=== PATIENT | male | born 1960 | race Caucasian/White ===

== ENCOUNTER 2020-12-18 20:45 | Emergency (ER) | payer SELFPAY ==
[2020-12-18 21:02] VITALS: BP 177/118; PULSE 81; RESP 24; TEMP 36.8; O2SAT 98; BMI 22.2
--- NOTE | 2020-12-18 23:03 | ED_ITS ---
HPI - Abdominal Pain General: Chief Complaint: Abdominal Pain Stated Complaint: GROIN PAIN/THINKS HERNIA Time Seen by Provider: 12/18/20 22:55 Source: patient Mode of arrival: ambulatory Limitations: no limitations History of Present Illness: HPI narrative: 60-year-old male patient presents to the emergency department with complaints of right lower quadrant/pelvic pain x3 hours. He has experienced similar bouts of pain but has not been this severe. He denies nausea vomiting diarrhea, he reports difficulty with urination, difficulty starting stream. He denies hematuria, denies constipation. History of bilateral lower abdominal hernia surgery, denies testicular pain. MD elicited complaint: abdominal pain Pertinent past history: other (hernia surgery) Pain Consistency: constant Location: RLQ and Suprapubic Severity: moderate Pain scale (0-10): 8 Quality: stabbing and aching Radiation: none Migration to: no migration Exacerbating factors: movement Relieving factors: nothing Context: history of similar episodes Associated Symptoms: Denies change in stool character, chills, constipation, diarrhea, dysuria, fever(s), heartburn, hematochezia, hematemesis, nausea and vomiting Review of Systems General: Reports: 10 or more systems reviewed and unremarkable except in HPI and below Const: Denies: fever(s), chills or diaphoresis Eyes: Denies: blurry vision or eye redness ENMT: Denies: throat pain, uvular edema, dental pain, halitosis or disequilibrium Card: Denies: chest pain, palpitations or irregular heart rhythm Resp: Denies: dyspnea, productive cough, non-productive cough or wheezing GI: Reports: abdominal pain; Denies: nausea, vomiting, hematemesis, heartburn, diarrhea, constipation, change in stool character or hematochezia : Reports: difficulty urinating, urinary hesitancy, difficulty starting urination and change in urine stream; Denies: dysuria Musc: Denies: neck pain, back pain, joint pain, muscle cramps or muscle weakness Skin/Breast: Denies: rash or pruritus Neuro: Denies: headache(s), weakness in extremities or behavioral changes Psych: Denies: anxiety or depression Victor Hugo/Lymph: Denies: easy bruising PFS ED PFSH: Medical History Ankle fracture, left Surgical History History of hernia surgery Social History (Updated 12/18/20 @ 23:38 by ABELARDO Sena) Smoking and tobacco status: current every day smoker cigarettes Packs smoked per day: 1 Alcohol intake: never Substance/Drug Use: never Physical Exam Const: COMMON NORMALS: no acute distress, patient oriented x3, healthy appearing, alert and well nourished GENERAL APPEARANCE: cooperative, well kempt, well developed, in distress (pain), anxious and well hydrated NUTRITIONAL APPEARANCE: thin ORIENTATION/CONSCIOUSNESS: Yes awake, Yes oriented to person, Yes oriented to place and Yes oriented to time HENMT: COMMON NORMALS: normocephalic, atraumatic, EAC's normal, Normal external nose present and moist oral mucous membranes HEAD & SCALP: normal to inspection, normocephalic and atraumatic FACE & SINUS: normal facial exam and face symmetric NOSE: Normal external nose present EXTERNAL AUDITORY CANAL: EAC's normal THROAT: posterior oropharynx normal; no uvular edema Eye: COMMON NORMALS: Equal, round and reactive pupils present and EOMs intact bilaterally GENERAL EYE: appearance normal, both eyes and all related structures PUPIL: Yes Equal, round and reactive pupils present Neck/C-Spine: COMMON NORMALS: full ROM and no lymphadenopathy GENERAL: Yes normal visual inspection and Yes trachea midline CERVICAL SPINE: Yes cervical ROM normal Lymph: LYMPHATIC: no lymphadenopathy noted Chest: COMMONS NORMALS: normal inspection of the chest and normal palpation of entire chest wall Resp: COMMON NORMALS: normal respiratory effort, No retractions, No use of accessory muscles and clear to auscultation bilaterally EFFORT & INSPECTION: Yes able to speak in complete sentences AUSCULTATION: clear to auscultation bilaterally, rhonchi and wheezes (scattered, clears with cough) Cardio: COMMON NORMALS: regular rate, regular rhythm, S1 normal heart sound present, S2 normal heart sound present and Peripheral pulses 2+ throughout RATE: regular rate RHYTHM: regular rhythm HEART SOUNDS: S1 normal heart sound present and S2 normal heart sound present PERIPHERAL PULSES: Peripheral pulses 2+ throughout GI: COMMON NORMALS: Normal to inspection, nondistended, normoactive bowel sounds present and Soft to palpation INSPECTION: Yes normal to inspection, No abdominal wall ecchymosis, No abdominal distension, No central obesity and No visible herniation PALPATION: Yes Soft to palpation, Yes Tenderness to palpation present (GI) Details: RLQ, Yes Rigid due to palpation and Yes Rebound tenderness present : COMMON NORMALS: Yes no CVA tenderness BLADDER/KIDNEY EXAM: Yes no CVA tenderness Back/Pelvis: COMMON NORMALS: no CVA tenderness and thoracic and lumbar spine normal to inspection Extremity: COMMON NORMALS: normal to inspection, full ROM, capillary refill normal, no calf tenderness and no pedal edema GENERAL: Yes normal exam except as noted Neuro: COMMON NORMALS: patient oriented x3 and no focal motor deficits SENSORIUM/ORIENTATION: Yes alert, Yes oriented to person, Yes oriented to place and Yes oriented to time Psych: COMMON NORMALS: mental status grossly normal, Normal thought process present and cooperative APPEARANCE: Yes well kempt ACTIVITY/MOTOR BEHAVIOR: Yes appropriate eye contact THOUGHT PROCESS: Normal thought process present Skin: COMMON NORMALS: no rashes or lesions noted, no wounds, turgor normal, no petechiae and no mottling GENERAL SKIN EXAM: no rashes or lesions noted, elasticity normal and turgor normal Course Vital Signs: Vital signs: Vital Signs Temperature 98.2 F 12/19/20 03:00 Pulse Rate 78 12/19/20 03:00 Respiratory Rate 17 12/19/20 03:00 Blood Pressure 160/109 12/19/20 03:00 Pulse Oximetry 97 12/19/20 03:00 MDM - Abdominal Pain MDM Narrative: Medical decision making narrative: 60-year-old male patient presents to the emergency department with worsening episode of right lower quadrant/suprapubic pain. Serology testing without acute abnormality, urine with red blood cells/white blood cells, CT scan of the abdomen/pelvis revealed multiple punctate calcifications throughout the urinary bladder reflecting small bladder calculi. He received morphine and Zofran here in the ED, medication did relieve his pain. He remained hypertensive despite pain medication administration -patient reports he is always been hypertensive, normal blood pressure reading, 220/110 . Hydralazine initiated as maintenance medication with referral to social group worker for urology due to bladder calculi and primary care for new onset hypertension. He denies chest pain/shortness of breath. Post residual void when 118 mL. Flomax initiated. He was treated with Cipro a nd Flagyl as left lower quadrant colitis appreciated on CT abdomen and pelvis. Lab Data: Labs: Lab Results 12/18/20 12/18/20 12/18/20 Range/Units 01:14 23:20 23:20 WBC 10.8 H (4.0-10.0) 10^3/ uL RBC 5.03 (4.1-5.3) 10^6/u L Hgb 14.6 (11.7-16.6) g/dL Hct 46.6 (42.0-52.0) % MCV 92.6 (80-94) fL MCH 29.0 (28.0-34.0) pg MCHC 31.3 (30.0-36.0) g/dL RDW 12.9 (12.1-15.1) % Plt Count 318 (130-400) 10^3/c mm MPV 9.8 (7.4-10.4) fL Neut % (Auto) 68.4 % Lymph % (Auto) 20.8 % [place] % (Auto) 6.7 % Eos % (Auto) 3.3 % Baso % (Auto) 0.6 % Neut # (Auto) 7.36 (1.8-7.7) 10^3/u L Lymph # (Auto) 2.2 (0.8-4.8) 10^3/u L [place] # (Auto) 0.7 (0.2-0.9) 10^3/u L Eos # (Auto) 0.4 (0.0-0.8) 10^3/u L Baso # (Auto) 0.1 (0.0-0.1) 10^3/u L Nucleated RBC % (a uto) 0 % Nucleated RBCs # 0.0 /100WBC Sodium 134 L Cancelled (136-145) mmol/L Potassium 4.0 Cancelled (3.5-5.1) mmol/L Chloride 98 Cancelled (98-107) mmol/L Carbon Dioxide 28 Cancelled (22-29) mmol/L Anion Gap 12.0 Cancelled (5-19) BUN 10 Cancelled (6-20) mg/dL Creatinine 0.5 L Cancelled (0.7-1.2) mg/dL GFR Calculation 170.8 H Cancelled (90-130) mL/min Glucose 97 Cancelled (65-115) mg/dL Calculated Osmolal ity 277 L Cancelled (285-295) mOsm/k g Calcium 8.2 L Cancelled (8.5-10.5) mg/dL Total Bilirubin 0.3 Cancelled (0.15-1.2) mg/dL AST 14 Cancelled (0-40) U/L ALT 11 Cancelled (0-41) U/L Alkaline Phosphata se 74 Cancelled (40-130) IU/L Total Protein 6.8 Cancelled (6.6-8.7) g/dL Albumin 3.5 Cancelled (3.5-5.2) g/dL Globulin 3.3 Cancelled (1.3-4.6) g/dL Urine Color (Yellow) Urine Appearance (CLEAR) Urine pH (5-7) Ur Specific Gravit y (1.005-1.030) Urine Protein (Negative) Urine Glucose (UA) (Normal) Urine Ketones (Negative) Urine Blood (Negative) Urine Nitrate (Negative) Urine Bilirubin (Negative) Prot Sulfosalicyli c Acd (Negative) Urine Urobilinogen (Negative) mg/dL Ur Leukocyte Heaven ase (Negative) Urine RBC (0-2) /hpf Urine WBC (0-5) /hpf Ur Squamous Epith Cells (0-5) /hpf Amorphous Sediment /hpf Urine Bacteria (NONE) /hpf Urine Mucus /hpf 12/19/ Range/Units 00:22 WBC (4.0-10.0) 10^3/ uL RBC (4.1-5.3) 10^6/u L Hgb (11.7-16.6) g/dL Hct (42.0-52.0) % MCV (80-94) fL MCH (28.0-34.0) pg MCHC (30.0-36.0) g/dL RDW (12.1-15.1) % Plt Count (130-400) 10^3/c mm MPV (7.4-10.4) fL Neut % (Auto) % Lymph % (Auto) % [place] % (Auto) % Eos % (Auto) % Baso % (Auto) % Neut # (Auto) (1.8-7.7) 10^3/u L Lymph # (Auto) (0.8-4.8) 10^3/u L [place] # (Auto) (0.2-0.9) 10^3/u L Eos # (Auto) (0.0-0.8) 10^3/u L Baso # (Auto) (0.0-0.1) 10^3/u L Nucleated RBC % (a uto) % Nucleated RBCs # /100WBC Sodium (136-145) mmol/L Potassium (3.5-5.1) mmol/L Chloride (98-107) mmol/L Carbon Dioxide (22-29) mmol/L Anion Gap (5-19) BUN (6-20) mg/dL Creatinine (0.7-1.2) mg/dL GFR Calculation (90-130) mL/min Glucose (65-115) mg/dL Calculated Osmolal ity (285-295) mOsm/k g Calcium (8.5-10.5) mg/dL Total Bilirubin (0.15-1.2) mg/dL AST (0-40) U/L ALT (0-41) U/L Alkaline Phosphata se (40-130) IU/L Total Protein (6.6-8.7) g/dL Albumin (3.5-5.2) g/dL Globulin (1.3-4.6) g/dL Urine Color Yellow (Yellow) Urine Appearance Sl hazy (CLEAR) Urine pH 8 H (5-7) Ur Specific Gravit y 1.010 (1.005-1.030) Urine Protein Neg (Negative) Urine Glucose (UA) Norm (Normal) Urine Ketones Negative (Negative) Urine Blood Neg (Negative) Urine Nitrate Negative (Negative) Urine Bilirubin Neg (Negative) Prot Sulfosalicyli c Acd Negative (Negative) Urine Urobilinogen Norm (Negative) mg/dL Ur Leukocyte Heaven ase Negative (Negative) Urine RBC 0-4 H (0-2) /hpf Urine WBC 0-4 H (0-5) /hpf Ur Squamous Epith Cells 0-4 H (0-5) /hpf Amorphous Sediment 3+ /hpf Urine Bacteria Trace (NONE) /hpf Urine Mucus 1+ /hpf Imaging Data ^: CT Abd/Pel: Radiologist's impression: [address] [place] [address] CT Scan Report Signed Patient: William Raymond Unit #: [id number] : 1960 Age/Sex: 60 / M ADM Date: 12/18/20 Loc: ER Room/Bed: Attending Dr: Ordering Provider/Ordering MD: Pari Grande Date of Service: 12/18/20 Procedure(s): CT abdomen pelvis w con* [id number] Accession Number(s): [id number] Report Number: [id number] PROCEDURE INFORMATION: Exam: CT Abdomen And Pelvis With Contrast Exam date and time: 12/18/2020 11:53 PM Age: 60 years old Clinical indication: Abdominal pain; Localized; Right lower quadrant (rlq); Prior surgery; Surgery date: 6+ months; Surgery type: Hernia; Patient HX: C/O rlq abd pain; Additional info: Rlq pain, h/o hernia surgery TECHNIQUE: Imaging protocol: Computed tomography of the abdomen and pelvis with contrast. Radiation optimization: All CT scans at this facility use at least one of these dose optimization techniques: automated exposure control; mA and/or kV adjustment per patient size (includes targeted exams where dose is matched to clinical indication); or iterative reconstruction. Contrast material: OMNI 300; Contrast volume: 95 ml; Contrast route: INTRAVENOUS (IV); COMPARISON: No relevant prior studies available. RADIATION DOSE METRICS: Total DLP (mGy-cm): 292.75 FINDINGS: Liver: Normal. No mass. Gallbladder and bile ducts: Cholelithiasis. Pancreas: Normal. No ductal dilation. Spleen: Normal. No splenomegaly. Adrenal glands: Normal. No mass. Kidneys and ureters: Bilateral benign renal cysts, negative for follow up. Stomach and bowel: Left colon mild wall thickening may reflect a mild colitis in the appropriate clinical setting. Appendix: No evidence of appendicitis. Intraperitoneal space: Unremarkable. No free air. No significant fluid collection. Vasculature: Unremarkable. No abdominal aortic aneurysm. Lymph nodes: Unremarkable. No enlarged lymph nodes. Urinary bladder: Multiple punctate calcifications throughout the urinary bladder likely reflecting multiple small bladder calculi or perhaps calcification of the bladder wall. Reproductive: Unremarkable as visualized. 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 Soft tissues: Unremarkable. CT/CT abdomen pelvis w con* [id number] IMPRESSION: 1. Multiple punctate calcifications throughout the urinary bladder likely reflecting multiple small bladder calculi or perhaps calcification of the bladder wall. 2. Cholelithiasis. 3. Bilateral benign renal cysts, negative for follow up. 4. Multiple punctate calcifications throughout the urinary bladder likely reflecting multiple small bladder calculi. 5. 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 COMMENTS: Consistent with the [employer]'s Incidental Findings Committee white paper (J Am Vane Radiol 2018): Any incidental renal lesion less than 1 cm or classified as too small to characterize, or any incidental cystic renal lesion characterized as simple-appearing, is likely benign. No follow-up imaging is recommended for these lesions per consensus recommendations based on imaging criteria. Radiation Dose CTDIVOL = (mGy): DLP = 292.75 (mGy-cm) Dictated By: William Scott MD Signed By: William Scott MD Signed Date/Time: 12/19/2024 DD/ Discharge Plan Discharge Patient Disposition: Home Clinical Impression: Bladder calculi, Urinary hesitancy HTN (hypertension) Qualifiers: Hypertension type: essential hypertension Qualified Code(s): I10 - Essential (primary) hypertension Condition: Stable Prescriptions: New Flomax 0.4 mg capsule 0.4 mg PO DAILY Qty: 30 RF: 0 Cipro 500 mg tablet 500 mg PO Q12H Qty: 20 RF: 0 Flagyl 500 mg tablet 500 mg PO TID Qty: 30 RF: 0 hydrocodone-acetaminophen 5-325 mg tablet 1 tab PO Q4H PRN (Reason: pain) Qty: 5 RF: 0 hydralazine 10 mg tablet 10 mg PO BID Qty: 60 RF: 0 Discharge Orders: Discharge ED (Routine); Ordered 12/19/20 Ordered By: Pari Grande Discharge Diet: Cardiac Discharge Activity: Resume usual activity Patient Instructions: Urinary Retention in Men (ED), Abdominal Pain (ED), Hypertensive Crisis (ED), Opioid Safety Activity Restrictions/Additional Instructions: guest services lead will be contacting you with a follow-up appointment for urology, Dr. Beltre, bladder calcifications will need to be followed up upon Take pain medication as prescribed, pain medication may cause constipation, laxative/stool softener may be needed Take antibiotics as directed and complete until all gone. Do not miss dosing. Return to the emergency department if you develop increased abdominal pain, inability to void/urinate or other concerning symptoms. 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
[2020-12-18 23:22] VITALS: RESP 17; O2SAT 96
[2020-12-18] MEDS: ondansetron 2 mg/ML SDV 2 mL 4 MG IVP (23:22)
[2020-12-18] MEDS: morphine 4 mg/mL SDV 1 mL IVP (23:22)
[2020-12-18 23:26] VITALS: BP 192/110; PULSE 62; RESP 19; O2SAT 96
[2020-12-18 23:29] LABS: Basophils # 0.1 10^3/uL (0.0-0.1); Basophils % 0.6 %; Eosinophils # 0.4 10^3/uL (0.0-0.8); Eosinophils % 3.3 %; Hematocrit 46.6 % (42.0-52.0); Hemoglobin 14.6 g/dL (11.7-16.6); Lymphocytes # 2.2 10^3/uL (0.8-4.8); Lymphocytes % 20.8 %; Mean Corpuscular HGB Conc 31.3 g/dL (30.0-36.0); Mean Corpuscular Volume 92.6 fL (80-94); Mean Platelet Volume 9.8 fL (7.4-10.4); Monocytes # 0.7 10^3/uL (0.2-0.9); Monocytes % 6.7 %; Neutrophils # 7.36 10^3/uL (1.8-7.7); Neutrophils % 68.4 %; Nucleated Red Blood Cells % 0 %; Platelet Count 318 10^3/cmm (130-400); Red Blood Count 5.03 10^6/uL (4.1-5.3); Red Cell Distribution Width 12.9 % (12.1-15.1); White Blood Count 10.8 10^3/uL (4.0-10.0)
[2020-12-19] MEDS: iohexol 300 mg/mL 100 mL Btl IV (00:02)
[2020-12-19 01:00] VITALS: BP 182/112; PULSE 78; RESP 16; O2SAT 97
[2020-12-19 01:27] LABS: Add Urine Microscopic? YES; Bilirubin Urine Neg (Negative); Blood Urine Neg (Negative); Glucose Urine UA Norm (Normal); Ketones Urine Negative (Negative); Leukocyte Esterase Urine Negative (Negative); Nitrate Urine Negative (Negative); Protein Urine Neg (Negative); Sulfosalicylic Acid Urine Negative (Negative); Urine Appearance SL Hazy (CLEAR); Urine Color Yellow (Yellow); Urobilinogen Urine Norm (Negative); pH Urine 8 (5-7)
[2020-12-19 01:28] LABS: Add Urine Culture? No; Amorphous Sediment Urine 3+ /hpf; Bacteria Urine TRACE /hpf; Mucus Urine 1+ /hpf; RBC Urine 0-4 /hpf (0-2); Squamous Epithelial Cell Urine 0-4 /hpf (0-5); WBC Urine 0-4 /hpf (0-5)
[2020-12-19 01:41] LABS: Alanine Aminotransferase 11 U/L (0-41); Albumin Level 3.5 g/dL (3.5-5.2); Alkaline Phosphatase 74 IU/L (40-130); Blood Urea Nitrogen 10 mg/dL (6-20); Calcium 8.2 mg/dL (8.5-10.5); Carbon Dioxide 28 mmol/L (22-29); Chloride 98 mmol/L (98-107); Creatinine Clr Calc Pharmacy 149.0213; Globulin 3.3 g/dL (1.3-4.6); Glomerular Filtration Rate 170.8 mL/min (90-130); Glucose 97 mg/dL (65-115); Osmolality Calculated 277 mOsm/kg (285-295); Sodium 134 mmol/L (136-145); Total Bilirubin 0.3 mg/dL (0.15-1.2); Total Protein 6.8 g/dL (6.6-8.7)
[2020-12-19 01:46] LABS: Aspartate Amino Transferase 14 U/L (0-40)
[2020-12-19] MEDS: ciprofloxacin 500 mg Tablet PO (02:03)
[2020-12-19] MEDS: hyDRALAzine 10 mg Tablet PO (02:03)
[2020-12-19] MEDS: metroNIDAZOLE 500 MG Tablet PO (02:03)
[2020-12-19] MEDS: tamsulosin 0.4 mg Capsule PO (02:39)
[2020-12-19 03:00] VITALS: BP 160/109; PULSE 78; RESP 17; TEMP 36.8; O2SAT 97
--- NOTE | 2020-12-19 11:33 | DCPLANNER ---
manager security had message to schedule a follow up appointment for patient with Dr. Beltre. manager security called the office of Dr. Beltre, spoke with Bella, gave clinic patients information. manager security was told that patients information would be printed and reviewed. Clinic will call patient with appointment information. manager security also had message to speak with patient about getting established with a primary care physician. manager security called [phone] to speak with patient about getting established with a primary care physician. A recording came on and stated that this is not a working number. manager security also called phone number [phone], patients mother, and the phone was a busy signal, tried several times and each time the line was busy. Unable to reach patient at this time to speak with patient about getting established with a physician.
--- NOTE | 2020-12-20 07:55 | DCPLANNER ---
Patient has a follow up appointment scheduled for Sunday, December 20, 2020 at 10:[address] Beltre. Clinic will call patient with appointment information.
--- NOTE | 2021-01-02 08:12 | DCPLANNER ---
Patient had a follow up appointment scheduled for 12.20.[address] Beltre - patient did attend appointment.
== END 2020-12-19 03:11 | disposition home or self-care (01) ==
PROVIDERS: Emergency Provider Nurse Practitioner Family
DX: N21.0 Calculus in bladder (principal); R39.11 Hesitancy of micturition; I10 Essential (primary) hypertension; F17.210 Nicotine dependence, cigarettes, uncomplicated
CPT/HCPCS: 51798; 74177; 80053; 81001; 85025; 96374; 96375; 99284; J2270; J2405; Q9967

== ENCOUNTER 2020-12-21 10:25 | Outpatient (CLI) | payer SELFPAY ==
--- NOTE | 2020-12-21 10:15 | XR_ITS ---
WS: [id number] Exam: XR KUB [id number] Date/Time of Exam: 12/21/2020 10:15 AM Reason For Exam: stones Comparison 05/23/2017. No sign of bowel obstruction or free air. No abnormal calcifications visualized in the region of the kidneys. There are several calcifications in the central pelvis. Some of these apparently represents the patient's known bladder calculi. Visualized organ margins are intact. Surgical clips seen over th e right inguinal region. XR/XR KUB [id number] IMPRESSION: 1. Several calcifications seen in the central pelvic region apparently represen ting the patient's known bladder calculi. There are no calcifications seen in t he region of the kidneys. 2. No acute abdominal process identified.
== END 2020-12-21 10:26 | disposition home or self-care (01) ==
LOC: RAD 10:28
PROVIDERS: PCP Nurse Practitioner Family; Visit Provider Urology
DX: N21.0 Calculus in bladder (principal)
CPT/HCPCS: 74018; 87635

== ENCOUNTER 2020-12-26 12:46 | Day surgery (SDC) | payer SELFPAY ==
[2020-12-23 13:32] VITALS: BMI 21.9
[2020-12-26] VITALS (8 sets, daily range): BP systolic 130–181; BP diastolic 94–132; PULSE 76–93; RESP 14–19; TEMP 36.7–37.1; O2SAT 95–100
[2020-12-26] MEDS: sodium chloride 0.9% 1,000 ML 30 ML IV (13:18)
--- NOTE | 2020-12-26 13:26 | ANES.PREANE2 ---
Pre-Anesthetic Assessment Pre-Anesthetic Assessment: Height/Weight: Height 1.7 m Weight 63.503 kg Temp Pulse Resp BP Pulse Ox 98.1 F 90 18 181/132 98 12/26/20 12:57 12/26/20 12:57 12/26/20 12:57 12/26/20 12:57 12/26/20 12:57 Preop Diagnosis: Cystolithiasis Proposed Procedure: Operation Date: 12/26/20 14:40 Proposed Procedures p Cystolitholapaxy 47944 N21.0(Not Applicable) - Ric Beltre MD Familial anesthetic complications: None Was Beta Oliver taken within 24 hours: N/A Last intake: Intake Black coffee at 0800 Last Liquid Date 12/26/20 Last Liquid Time 08:00 Last Solid Date 12/25/20 Last Solid Time 16:00 Social: Social History: Tobacco and No alcohol Comment: hx methamphetamine abuse - denies any recent use Exam: Pre-Anes Outpt Exam: alert, oriented x 3, clear to auscultation bilaterally and regular rate & rhythm Airway: Cervical ROM: WNL MP: 2 Dentition: Chipped, Loose and Other (poor dentition multiple rotten broken teeth) CV/HEM: CV/HEM: HTN Anesthetic Plan: ASA status: 2 Anesthesia: General Risk of > 500 ml blood loss (7ml/kg in children): No Meds/Allergies Current Medications: Current Medications Generic Name Dose Route Start Last Admin Trade Name Freq PRN Reason Stop Dose Admin Sodium Chloride 1,000 mls @ 30 ml s/hr 12/26/20 12:45 12/26/20 13:18 Sodium Chloride 0.9% IV 12/27/20 12:44 30 mls/hr .Q24H ADRIANA Administration PFSH Anesthesia PFSH: Medical History (Updated 12/21/20 @ 13:52 by Ric Beltre MD) Ankle fracture, left Incomplete bladder emptying Surgical History History of hernia surgery Social History Smoking and tobacco status: current every day smoker cigarettes Packs smoked per day: 1 Alcohol intake: never Current occupational status: unemployed Data Anesthesia Cardiac Studies: No Data to Display
--- NOTE | 2020-12-26 15:39 | P.HPUD_ITS ---
Surgery/Procedure H&P Update DATE OF PROCEDURE: December 26, 2020 DATE H&P PERFORMED: 12/21/20 H&P UPDATE INFORMATION: I have reviewed H&P completed within last 30 days, I have examined patient prior to procedure, No changes to prior documentation and H&P is in [facility] EMR on date indicated PREOP DIAGNOSIS: Cystolithiasis PLANNED PROCEDURE: Operation Date: 12/26/20 14:40 Proposed Procedures p Cystolitholapaxy 02412 N21.0(Not Applicable) - Ric Beltre MD
--- NOTE | 2020-12-26 16:45 | PM.OP ---
Operative Report Date of procedure: December 26, 2020 Pre-op Diagnosis: Cystolithiasis Post-op diagnosis: same Procedure Done: Removal of multiple bladder stones Pathology: Stone fragments Surgeon: Patt Anesthesia: MAC Estimated blood loss: Minimal Urine output: Not measured Complications: None Findings: Multiple small stones in the bladder and a couple moderate-sized ones that required fragmentation. Condition: stable Disposition: PACU Brief History: Mr. Raymond is a 60-year-old white male evaluated emergency room recently with abdominal pain difficulty starting his stream and painful urination. CT scan revealed multiple small stones in the bladder and his distended bladder. He felt that he was voiding better on TAMSULOSIN at the time he was evaluated in my clinic. And CYSTOSCOPY revealed the bladder stones to be mostly small with a few moderate size stones too big to pull out in the clinic. Admitted now for cystolitholapaxy. Procedure: After routine preoperative evaluation examination and obtaining of informed consent he was taken to the operating suite on 12/26/2020 where general anesthesia was administered without difficulty after appropriate timeout was performed, SCDs confirmed to be functioning, preoperative antibiotics administered, beta-guillermo protocol confirmed. Prepped and draped in the usual sterile fashion in dorsolithotomy position paying careful attention to avoiding pressure points. 21 Vietnamese cystoscope with 30 degree lens was introduced into the urethral meatus and advanced into the bladder to videoscopy. All of the stones were carefully inspected and found to be small enough to remove through the cystoscope with an Zafar evacuator. Final inspection revealed intact mucosa without difficulty. No active bleeding was noted. No additional stones remained. Stones were sent for pathologic evaluation. Tolerated procedure well without complications and was awakened in the operating room and returned to the recovery room in stable condition. PLANS: 1. Follow-up in about 6 months with flow rate PVR AUA symptom score, and KUB 2. Continue TAMSULOSIN 3. Call for any stone symptoms or recurrent retention.
[2020-12-26] MEDS: levofloxacin-dextrose 5 % 500 MG/100 ML PREMIX 100 MG IV (17:22)
[2020-12-26] MEDS: ceFAZolin 1,000 mg SDV 2000 MG IVP (17:35)
--- NOTE | 2020-12-26 17:46 | SUR.OPER ---
1722 start IVPB levaQUIN 500MG. 1724 PT COMPLAINING OF ITCHING AT RIGHT AC AND RIGHT SHOULDER. STOPPED LEVAQUIN IVPB AND REPORTED TO DR. BAPTISTE. DR. BAPTISTE STATED TO STOP LEVAQUIN AND USED 2GM ANCEF INSTEAD
[2020-12-26] MEDS: labetalol 5 mg/mL SDV 20mL IVP (18:18)
--- NOTE | 2020-12-26 18:30 | ANE.PACU2 ---
Inpatient post-anesthesia follow up: Airway intact: Yes Vital signs: Temperature 98.5 F Pulse Rate 76 Respiratory Rate 18 Blood Pressure 142/94 Pulse Oximetry 99 Oxygen Delivery Me thod Room Air Oxygen Flow Rate 8 Fraction of Inspir ed Oxygen Hydration adequate: Yes Nausea and vomiting: No Pain level: 1 Mental status: Baseline
[2020-12-31 01:13] LABS: Stone Source BLADDER STONES
== END 2020-12-26 19:10 | disposition home or self-care (01) ==
PROVIDERS: PCP Nurse Practitioner Family; Visit Provider Urology
PROC: 0TCB8ZZ Extirpation of Matter from Bladder, Via Natural or Artificial Opening Endoscopic (ICD-10-PCS; CPT 52317; principal; 2020-12-26 14:40)
DX: N21.0 Calculus in bladder (principal); I10 Essential (primary) hypertension; F17.210 Nicotine dependence, cigarettes, uncomplicated
CPT/HCPCS: 52317; 82365; 88300; 96374; J0690; J1100; J1956; J2250; J2405; J2704; J2710; J3010; J3490; J7030

== ENCOUNTER 2021-12-25 09:42 | Outpatient (CLI) | payer OTHER, SELFPAY ==
--- NOTE | 2021-12-25 10:04 | XRR_ITS ---
PROCEDURE INFORMATION: Exam: XR Right Ankle Exam date and time: 12/25/2021 10:04 AM Age: 61 years old Clinical indication: Prior surgery; Surgery type: Right ankle, many years ago; Patient HX: Injury and surgery many years ago. C/O pain RT ankle especially when up on it too long. ; Additional info: R ankle pain rom difficulty TECHNIQUE: Imaging protocol: XR Right ankle. Views: 1 or 2 views. COMPARISON: No relevant prior studies available. FINDINGS: Bones/joints: Metallic surgical hardware is seen in the ankle with metallic plate and screws in the lateral aspect of the fibula. Metallic screws are seen traversing the medial malleolus. The bones show anatomic alignment. Soft tissues: Normal. XR/XR ankle RT 2V [id number] IMPRESSION: No acute findings.
== END 2021-12-25 09:43 | disposition home or self-care (01) ==
LOC: RAD 09:50
PROVIDERS: PCP Family Medicine; Visit Provider Emergency Medicine
DX: M25.571 Pain in right ankle and joints of right foot (principal)
CPT/HCPCS: 73600

== ENCOUNTER 2022-11-28 08:37 | Emergency (ER) | payer SELFPAY ==
[2022-11-28 08:38] VITALS: BP 185/140; PULSE 97; RESP 20; TEMP 37.4; O2SAT 98; BMI 22.5
--- NOTE | 2022-11-28 08:52 | XR_ITS ---
WS: [id number] RIGHT ELBOW: 3 VIEW(S) TECHNIQUE: AP, oblique and lateral. HISTORY: trauma COMPARISON: None available. No definite fractures identified involving the elbow. There is narrowing of the joint spaces and osteophytes involving the medial and lateral compartment. There are osteophytes surrounding the radial head. Osteophyte along the olecranon. Cannot confirm fra ctures. There is a large amount of soft tissue edema along the medial elbow. There is also a joint effusion. XR/XR elbow RT min 3V* [id number] IMPRESSION: 1. Cannot confirm elbow fracture. 2. There is a large amount of soft tissue edema and also joint effusion at the elbow. Occult fracture should be considered. Consider evaluation by CT. 3. Hypertrophic osteophytes and degenerative arthropathy at the elbow.
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
[2022-11-28 09:05] VITALS: BP 185/140; PULSE 94; RESP 18; O2SAT 99
[2022-11-28] MEDS: ketorolac 30 mg/mL INJ 60 MG IM (09:06)
[2022-11-28 09:40] VITALS: BP 180/103; PULSE 89; RESP 16; O2SAT 98
--- NOTE | 2022-11-28 10:03 | CT_ITS ---
WS: [id number] CT RIGHT ELBOW, NONCONTRAST HISTORY: pain after fall swelling Technique: All CT scans at [facility] use at least one of these dose optimization techniques: automated exposure control; mA and/or kV adjustment per patient size (includes targeted exams where dose is matched to clinical indication); or iterative reconstruction. DLP: 105.28 mGy.cm COMPARISON: Radiographs 11/28/2022 Moderate to severe degenerative changes at the elbow. Joint spaces are narrowed with hypertrophic bon e formation and osteophytes. Subchondral cystic changes most significant involving the olecranon. No definite fracture is identified. The radial head is intact. There is a very large joint effusion. Moderate amount of soft tissue edema around the medial elbow. CT/CT elbow RT wo con* [id number] IMPRESSION: 1. Very large joint effusion. 2. No fracture identified. 3. Moderate to severe arthropathy at the elbow.
[2022-11-28 10:25] VITALS: BP 154/103; PULSE 75; RESP 16; O2SAT 98
--- NOTE | 2022-11-28 12:43 | DCPLANNER ---
Addendum entered by Shayy Soliman 12/12/22 14:10: loan review manager received the following message from the ortho clinic regarding follow up appointment: Attempt made to contact patient - number rings and rings no vm option - mailed letter to contact our clinic to schedule w/ dr ramírez Original Note: loan review manager had message to schedule a follow up appointment for patient with ortho. loan review manager sent patients information to the front office staff at ortho. Patients information will be printed and reviewed. Clinic will call patient with appointment information.
--- NOTE | 2022-11-28 12:45 | DCPLANNER ---
surgical manager had message to speak with patient about getting established with a primary care physician. surgical manager called phone number [phone] - the wireless customer is not accepting calls at this time. surgical manager unable to speak with patient or leave a voicemail for patient.
== END 2022-11-28 11:16 | disposition home or self-care (01) ==
PROVIDERS: Emergency Provider Family Medicine; PCP Family Medicine
DX: M25.421 Effusion, right elbow (principal); I10 Essential (primary) hypertension
CPT/HCPCS: 73080; 73200; 96372; 99284; J1885

== ENCOUNTER → 2024-02-13 12:49 | Outpatient (BNVA) | payer OTHER, SELFPAY | PROVIDERS: PCP Clinical Nurse Specialist Adult Health; Visit Provider Clinical Nurse Specialist Adult Health | DX: I10 Essential (primary) hypertension (principal); R82.71 Bacteriuria; R39.11 Hesitancy of micturition | CPT/HCPCS: 80053; 80061; 81003; 84443; 85025 ==

== ENCOUNTER → 2024-07-03 08:11 | Outpatient (BNVA) | payer OTHER, SELFPAY | PROVIDERS: PCP Clinical Nurse Specialist Adult Health; Visit Provider Clinical Nurse Specialist Adult Health | DX: N39.0 Urinary tract infection, site not specified (principal) | CPT/HCPCS: 81000; 87086 ==

== ENCOUNTER 2025-06-18 14:06 | Outpatient (CLI) | payer OTHER, SELFPAY ==
--- NOTE | 2025-06-18 14:14 | CT_ITS ---
WS: [id number] LDCT LUNG CANCER SCREENING TECHNIQUE: Noncontrast CT of the chest with coronal and sagittal reformatted images. CLINICAL INFORMATION: NICOTINE DEPENDENCE,CIGARETTES COMPARISON: None. DLP: 50.22 mGy.cm DIvol: Mean CTDIvol: 1.00 (mGy) All CT scans at [facility] use at least one of these dose optimization techniques: automated exposure control; mA and/or kV adjustment per patient size (includes targeted exams where dose is matched to clinical indication); or iterative reconstruction. FINDINGS: Aortic calcification. Coronary calcification. No mediastinal or hilar lymphadenopathy. No axillary lymphadenopathy. No suspicious pulmonary parenchymal abnormalities. Partially visualized low-attenuation masslike area in the liver incompletely visualized measuring up to 11 cm. Recommend further evaluation with contrast- enhanced CT abdomen/pelvis. Metastatic disease not excluded. Smaller adjacent satellite ovoid lesion measuring 2.8 cm. Small esophageal hiatal hernia. CT/CT lung screening [id number] IMPRESSION: PARTIALLY VISUALIZED LOW-ATTENUATION MASSLIKE AREA IN THE LIVER INCOMPLETELY SUALIZED MEASURING UP TO 11 CM. RECOMMEND FURTHER EVALUATION WITH CONTRAST-ENHA NCED CT ABDOMEN/PELVIS. METASTATIC DISEASE NOT EXCLUDED. LUNG-RADS: 1S-Negative with Significant Findings FOLLOW UP: 12 Month: Continue annual screening with LDCT
== END 2025-06-18 14:07 | disposition home or self-care (01) ==
LOC: RAD 14:08
PROVIDERS: PCP Clinical Nurse Specialist Adult Health; Visit Provider Family Medicine
DX: Z12.2 Encounter for screening for malignant neoplasm of respiratory organs (principal); F17.210 Nicotine dependence, cigarettes, uncomplicated; K76.89 Other specified diseases of liver
CPT/HCPCS: 71271

== ENCOUNTER 2025-06-28 12:35 | Emergency (ER) | payer OTHER, SELFPAY ==
--- NOTE | 2025-06-28 12:36 | XRR_ITS ---
PROCEDURE INFORMATION: Exam: XR Chest Exam date and time: 06/28/2025 12:42 PM Age: 64 years old Clinical indication: Pain; Chest pressure; Additional info: Cp TECHNIQUE: Imaging protocol: Radiologic exam of the chest. Views: 1 view. COMPARISON: CT lung screening [id number] 06/18/2025 2:17 PM FINDINGS: Lungs: Unremarkable. No consolidation. Pleural spaces: Unremarkable. No pleural effusion. No pneumothorax. Heart/Mediastinum: Unremarkable. No cardiomegaly. Bones/joints: Unremarkable. XR/XR chest 1V portable [id number] IMPRESSION: No acute findings.
--- NOTE | 2025-06-28 12:40 | ECG_ITS ---
[facility] Date: 2025-06-28 Pat Name: William Raymond Department: Room: Gender: Male [place] Production Line: : 1960 Requested By: Sameera Medina Order Number: [id number] Lu MD: Sony Maldonado M.D. Measurements Intervals [place] Rate: 94 P: 75 AR: 172 QRS: 47 QRSD: 93 T: 80 QT: 380 QTc: 476 Interpretive Statements SINUS RHYTHM Normal ECG Compared to ECG 03/19/2018 20:03:54 No change Electronically Signed On 06-28-2025 13:26:32 CDT by Sony Maldonado M.D. [email or web address] [id number]
--- NOTE | 2025-06-28 12:44 | CTR_ITS ---
PROCEDURE INFORMATION: Exam: CT Abdomen And Pelvis With Contrast Exam date and time: 06/28/2025 1:36 PM Age: 64 years old Clinical indication: Abdominal pain; Epigastric; Additional info: Abd pain TECHNIQUE: Imaging protocol: Computed tomography of the abdomen and pelvis with contrast. Radiation optimization: All CT scans at this facility use at least one of these dose optimization techniques: automated exposure control; mA and/or kV adjustment per patient size (includes targeted exams where dose is matched to clinical indication); or iterative reconstruction. Contrast material: OMNI 350; Contrast volume: 100 ml; Contrast route: INTRAVENOUS (IV); COMPARISON: CT abdomen pelvis w con* [id number] 12/19/2020 12:15 AM RADIATION DOSE METRICS: Total DLP (mGy-cm): 510.98 FINDINGS: Liver: New large heterogeneous infiltrative hepatic mass measuring up to 13 x 11 cm in involving the right and left hepatic lobes. Multiple hypoattenuating satellite lesions. New nodular hepatic contour. Gallbladder and biliary ducts: Normal. No calcified stones. No ductal dilation. Pancreas: Normal. No ductal dilation. Spleen: Normal. No splenomegaly. Adrenal glands: Normal. No mass. Kidneys and ureters: 2.8 cm left renal cyst. Nonspecific low-density foci of the kidneys statistically favor benign cysts, no follow-up imaging is recommended, as large as 10 mm. Stomach and bowel: Colonic diverticulosis is present without diverticulitis. Bowel has normal caliber. Appendix: No evidence of appendicitis. Intraperitoneal space: Unremarkable. No free air. No significant fluid collection. Vasculature: Aortoiliac atherosclerotic disease is seen without evidence of aneurysm. Lymph nodes: New lymphadenopathy near the portal splenic confluence measuring 3.3 x 1.7 cm. Urinary bladder: Multiple large bladder stones measuring up to 2.8 cm. Possible diffuse urinary bladder wall thickening, although the bladder is incompletely distended. Reproductive: Unremarkable as visualized. Bones/joints: Chronic grade 1 spondylolytic spondylolisthesis L5-S1 without change. No acute or suspicious osseous abnormality. Soft tissues: Unremarkable. CT/CT abdomen pelvis w con* [id number] IMPRESSION: 1. New large heterogeneous infiltrative hepatic mass measuring up to 13 x 11 cm in involving the right and left hepatic lobes. Multiple hypoattenuating satellite lesions. Findings almost certainly represent malignant hepatic neoplasm. 2. New lymphadenopathy near the portal splenic confluence measuring 3.3 x 1.7 cm. Suspected metastatic disease. 3. Multiple large bladder stones measuring up to 2.8 cm. 4. Possible diffuse urinary bladder wall thickening, although the bladder is incompletely distended. Possible acute cystitis versus underdistention of the bladder. Consider urinalysis if clinically indicated. COMMENTS: Consistent with the [employer]'s Incidental Findings Committee white paper (J Am Vane Radiol 2018): Any incidental renal lesion less than 1 cm or classified as too small to characterize, or any incidental cystic renal lesion characterized as simple-appearing, is likely benign. No follow-up imaging is recommended for these lesions per consensus recommendations based on imaging criteria.
--- NOTE | 2025-06-28 12:52 | W.ED.ABDPA2 ---
HPI - Abdominal Pain General: Chief Complaint: Abdominal Pain Stated Complaint: chest pains Time Seen by Provider: 06/28/25 12:36 Source: patient Mode of arrival: ambulatory Limitations: no limitations History of Present Illness: 64-year-old male states been having upper abdominal pain that radiates to his chest been going on for the last 3 days. He states he had a history of liver issues but is unsure what really was. States pains been sharp in nature had some vomiting. Rates his pain an 8 out of 10 when he points to he mainly points to his epigastric and right upper quadrant. Denies any fevers denies any dysuria diarrhea Associated Symptoms: Reports nausea and vomiting; Denies chills, diarrhea, dysuria and fever(s) Related Data Previous Rx's ?Medication ?Instructions ?Recorded tamsulosin 0.4 mg capsule 0.4 mg PO DAILY #30 caps 10/09/24 hydrocodone 5 mg-acetaminophen 325 1 tab PO Q6H PRN pain #14 tabs 06/28/25 mg tablet ondansetron 4 mg disintegrating 4 mg PO Q6H PRN nausea and 06/28/25 tablet vomiting #14 tabs Allergies Allergy/AdvReac Type Severity Reaction Status Date / Time No Known Allergies Allergy Verified 07/03/24 07:53 Review of Systems Const: Denies: fever(s), chills, body aches or change in appetite ENMT: Denies: throat pain or dental pain Card: Reports: chest pain Resp: Denies: dyspnea GI: Reports: abdominal pain, nausea and vomiting; Denies: diarrhea : Denies: dysuria Musc: Denies: neck pain or back pain Skin/Breast: Denies: rash Neuro: Denies: headache(s) PFSH ED PFSH: Medical History Hyperlipidemia ascvd risk calculator X 10 year risk 41.6%-- 2023 Chronic kidney disease, stage 3a Noncompliance with medications BPH (benign prostatic hyperplasia) Tobacco dependence due to cigarettes Incomplete bladder emptying Ankle fracture, left Surgical History Hx of elbow surgery right Bladder calculi hx of cystolitholapaxy in 2020 History of hernia surgery inguinal X2 Family History Other Hypertension Denies family history of Clotting disorder Anesthesia complication Bleeding disorder Cancer Social History Smoking and tobacco/nicotine status: current every day tobacco/nicotine user cigarettes Packs smoked per day: 1 Years cigarettes smoked: 43 Alcohol intake: current Alcohol intake frequency: holidays/special occasions only Substance/Drug Use: current Substance/Drug use frequency: daily Physical Exam Const: COMMON NORMALS: no acute distress, patient oriented x3 and healthy appearing HENMT: COMMON NORMALS: normocephalic and atraumatic HEAD & SCALP: normocephalic and atraumatic Eye: COMMON NORMALS: conjunctivae normal CONJUNCTIVA: Yes conjunctivae normal Neck/C-Spine: COMMON NORMALS: full ROM and supple Chest: COMMONS NORMALS: normal inspection of the chest Resp: COMMON NORMALS: normal respiratory effort, No retractions, No use of accessory muscles and clear to auscultation bilaterally AUSCULTATION: clear to auscultation bilaterally Cardio: COMMON NORMALS: regular rate, regular rhythm and No murmurs present (Cardio) RATE: regular rate RHYTHM: regular rhythm GI: COMMON NORMALS: Normal to inspection, nondistended, normoactive bowel sounds present, Soft to palpation and no masses PALPATION: Yes Soft to palpation and Yes Tenderness to palpation present (GI) Details: RUQ Extremity: COMMON NORMALS: normal to inspection and full ROM Neuro: COMMON NORMALS: patient oriented x3, moves all extremities and no focal motor deficits Psych: COMMON NORMALS: mental status grossly normal, Normal thought process present and cooperative THOUGHT PROCESS: Normal thought process present Skin: COMMON NORMALS: no rashes or lesions noted and no wounds GENERAL SKIN EXAM: no rashes or lesions noted Course Vital Signs: Vital signs: Vital Signs Pulse Rate 81 06/28/25 14:38 Respiratory Rate 18 06/28/25 13:10 Blood Pressure 171/99 06/28/25 14:38 Pulse Oximetry 97 06/28/25 14:38 Oxygen Delivery Me thod Room Air 06/28/25 13:10 MDM - Abdominal Pain Medical Decision Making Patient presents here with abdominal pain likely from his liver mass I did inform the liver mass we will get him follow-up with oncology will prescribe pain meds he is not really having any chest pain no signs of ACS troponins negative he stable for discharge follow-up PCP return if worsening Medical Records I reviewed the patient's medical records. Lab Data I reviewed the patient's lab results. 06/28/25 12:56 06/28/25 12:56 Labs/Radiology: Radiology Impressions Chest X-Ray 06/28/25 12:36 IMPRESSION: No acute findings. Abdomen/Pelvis CT 06/28/25 12:44 IMPRESSION: 1. New large heterogeneous infiltrative hepatic mass measuring up to 13 x 11 cm in involving the right and left hepatic lobes. Multiple hypoattenuating satellite lesions. Findings almost certainly represent malignant hepatic neoplasm. 2. New lymphadenopathy near the portal splenic confluence measuring 3.3 x 1.7 cm. Suspected metastatic disease. 3. Multiple large bladder stones measuring up to 2.8 cm. 4. Possible diffuse urinary bladder wall thickening, although the bladder is incompletely distended. Possible acute cystitis versus underdistention of the bladder. Consider urinalysis if clinically indicated. COMMENTS: Consistent with the [employer]'s Incidental Findings Committee white paper (J Am Vane Radiol 2018): Any incidental renal lesion less than 1 cm or classified as too small to characterize, or any incidental cystic renal lesion characterized as simple-appearing, is likely benign. No follow-up imaging is recommended for these lesions per consensus recommendations based on imaging criteria. Laboratory Results WBC 14.73 10^3/uL (3.29-11.43) H 06/28/25 12:56 RBC 5.61 10^6/uL (3.85-5.65) 06/28/25 12:56 Hgb 15.50 g/dL (11.27-16.99) 06/28/25 12:56 Hct 48.2 % (37-53) 06/28/25 12:56 MCV 85.9 fl (82-101) 06/28/25 12:56 MCH 27.6 pg (27-33) 06/28/25 12:56 MCHC 32.2 g/dL (30-55) 06/28/25 12:56 RDW 13.6 % (12.1-15.1) 06/28/25 12:56 Plt Count 330 10^3/cmm (157-399) 06/28/25 12:56 MPV 9.6 fL (7.4-10.4) 06/28/25 12:56 Neut % (Auto) 80.6 % 06/28/25 12:56 Lymph % (Auto) 10.8 % 06/28/25 12:56 Emmet % (Auto) 6.0 % 06/28/25 12:56 Eos % (Auto) 1.4 % 06/28/25 12:56 Baso % (Auto) 0.5 % 06/28/25 12:56 Neut # (Auto) 11.87 10^3/uL (1.8-7.7) H 06/28/25 12:56 Lymph # (Auto) 1.6 10^3/uL (0.8-4.8) 06/28/25 12:56 Emmet # (Auto) 0.9 10^3/uL (0.2-0.9) 06/28/25 12:56 Eos # (Auto) 0.2 10^3/uL (0.0-0.8) 06/28/25 12:56 Baso # (Auto) 0.1 10^3/uL (0.0-0.1) 06/28/25 12:56 Nucleated RBC % (auto) 0 % 06/28/25 12:56 Nucleated RBCs # 0.0 /100WBC 06/28/25 12:56 PT 13.00 SECONDS (12.1-14.9) 06/28/25 12:56 INR 0.92 (0.8-1.2) 06/28/25 12:56 Sodium 135 mmol/L (136-145) L 06/28/25 12:56 Potassium 4.0 mmol/L (3.5-5.1) 06/28/25 12:56 Chloride 93 mmol/L (98-107) L 06/28/25 12:56 Carbon Dioxide 29 mmol/L (22-29) 06/28/25 12:56 Anion Gap 17.0 (5-19) 06/28/25 12:56 BUN 13 mg/dL (8-23) 06/28/25 12:56 Creatinine 0.9 mg/dL (0.7-1.2) 06/28/25 12:56 GFR Calculation 85.5 mL/min (90-130) L 06/28/25 12:56 Glucose 102 mg/dL (65-115) 06/28/25 12:56 Calculated Osmolality 280 mOsm/kg (285-295) L 06/28/25 12:56 Calcium 9.4 mg/dL (8.5-10.5) 06/28/25 12:56 Total Bilirubin 0.9 mg/dL (0.15-1.2) 06/28/25 12:56 AST 67 U/L (0-40) H 06/28/25 12:56 ALT 64 U/L (0-41) H 06/28/25 12:56 Alkaline Phosphatase 400 U/L (40-130) H 06/28/25 12:56 Troponin T Baseline 12 ng/L (0-15) 06/28/25 12:56 Total Protein 8.1 g/dL (6.6-8.7) 06/28/25 12:56 Albumin 4.0 g/dL (3.5-5.2) 06/28/25 12:56 Globulin 4.1 g/dL (1.3-4.6) 06/28/25 12:56 Lipase 100 U/L (13-60) H 06/28/25 12:56 All radiology interpretation(s) finalized by discharge EKG Data EKG 1: I personally reviewed and interpreted this EKG as follows: EKG interpretation date: 06/28/25 EKG interpretation time: 12:40 Interpretation: nsr hr [address] elevation qrs 93 qtc 432 Discharge Plan Discharge Patient Disposition: Home Clinical Impression: Abdominal pain, Liver mass Condition: Stable Prescriptions: New hydrocodone-acetaminophen 5-325 mg tablet 1 tab PO Q6H PRN (Reason: pain) Qty: 14 0RF ondansetron 4 mg tablet,disintegrating 4 mg PO Q6H PRN (Reason: nausea and vomiting) Qty: 14 0RF No Action tamsulosin 0.4 mg capsule 0.4 mg PO DAILY Qty: 30 1RF Discharge Orders: Discharge ED (Routine); Ordered 06/28/25 Ordered By: Sameera Medina Discharge Diet: Advance as tolerated Discharge Activity: Resume usual activity Patient Instructions: Abdominal Pain (ED) Print Language: Peruvian Coding Level of Care Code ED Commercial Sales Consultant for Prachi Martinez
[2025-06-28 13:07] LABS: Hematocrit 48.2 % (37-53); Hemoglobin 15.50 g/dL (11.27-16.99); Mean Corpuscular HGB Conc 32.2 g/dL (30-55); Mean Corpuscular Hemoglobin 27.6 pg (27-33); Mean Corpuscular Volume 85.9 fl (82-101); Nucleated Red Blood Cells % 0 %; Platelet Count 330 10^3/cmm (157-399); Red Blood Count 5.61 10^6/uL (3.85-5.65); White Blood Count 14.73 10^3/uL (3.29-11.43)
[2025-06-28] MEDS: ondansetron 2 mg/ML SDV 2 mL 4 MG IVP (13:08)
[2025-06-28] MEDS: morphine 4 mg/mL SDV 1 mL IVP (13:08)
[2025-06-28 13:10] VITALS: BP 212/143; PULSE 93; RESP 18; O2SAT 97
[2025-06-28 13:18] LABS: INR 0.92 (0.8-1.2); Prothrombin Time 13.00 SECONDS (12.1-14.9)
[2025-06-28 13:23] LABS: Alanine Aminotransferase 64 U/L (0-41); Albumin Level 4.0 g/dL (3.5-5.2); Alkaline Phosphatase 400 U/L (40-130); Anion Gap 17.0 (5-19); Aspartate Amino Transferase 67 U/L (0-40); Blood Urea Nitrogen 13 mg/dL (8-23); Calcium 9.4 mg/dL (8.5-10.5); Carbon Dioxide 29 mmol/L (22-29); Chloride 93 mmol/L (98-107); Creatinine Clr Calc Pharmacy 81.5904; Globulin 4.1 g/dL (1.3-4.6); Glucose 102 mg/dL (65-115); Lipase 100 U/L (13-60); Osmolality Calculated 280 mOsm/kg (285-295); Potassium 4.0 mmol/L (3.5-5.1); Sodium 135 mmol/L (136-145); Total Protein 8.1 g/dL (6.6-8.7)
[2025-06-28 13:24] LABS: Troponin(5th) Baseline 12 ng/L (0-15)
[2025-06-28] MEDS: iohexol 350 mg/mL 500 mL Btl (per mL) IV (13:40)
[2025-06-28 14:38] VITALS: BP 171/99; PULSE 81; O2SAT 97
== END 2025-06-28 14:39 | disposition home or self-care (01) ==
PROVIDERS: Emergency Provider Emergency Medicine
DX: R10.9 Unspecified abdominal pain (principal); R16.0 Hepatomegaly, not elsewhere classified; F17.210 Nicotine dependence, cigarettes, uncomplicated; E78.5 Hyperlipidemia, unspecified; N18.31 Chronic kidney disease, stage 3a
CPT/HCPCS: 71045; 74177; 80053; 83690; 84484; 85025; 85610; 93005; 96374; 96375; 99285; J2270; J2405

== ENCOUNTER 2025-07-05 07:27 | Outpatient (CLI) | payer OTHER, SELFPAY ==
--- NOTE | 2025-07-05 07:32 | US_ITS ---
WS: [id number] RIGHT UPPER QUADRANT ULTRASOUND HISTORY: LIVER MASS COMPARISON: CT 06/28/2025, 12/19/2020 Liver: 20.0 cm in length. Liver is enlarged and very heterogeneous. There is a large mass involving a large portion of the RIGHT and LEFT lobes of the liver. This is an infiltrative mass and is of slight increased echogenicity compared to the normal liver parenchyma. As described on the prior CT this mass measures at least 15.3 x 10.8 x 11.5 cm. There are several adjacent satellite lesions or extensions of the larger central mass. No intrahepatic duct dilatation is identified. Portal vein was patent. Portal Vein: Normal hepatopetal flow with monophasic waveform. Gallbladder: Gallbladder is difficult to visualize. The gallbladder does appear slightly contracted with stones. CBD: 0.6 cm Pancreas: Completely obscured. Right kidney: 9.2 cm in length. Normal size and echogenicity. No hydronephrosis or mass. Aorta and IVC: Not visualized. No ascites. US/US abdomen limited [id number] IMPRESSION: 1. There is a large mass involving the RIGHT and LEFT lobes of the liver. This mass measures at least 15.3 x 10.8 x 11.5 cm. This may be a single large mass with satellite lesions or multiple metastatic sites which are now confluent. 2. No intra paddock duct dilatation. 3. Portal vein remains patent. 4. Limited evaluation of the gallbladder but cholelithiasis is suspected. 5. Nonvisualization of the pancreas.
== END 2025-07-05 07:28 | disposition home or self-care (01) ==
LOC: RAD 07:28
PROVIDERS: Visit Provider Family Medicine
DX: R16.0 Hepatomegaly, not elsewhere classified (principal); K82.9 Disease of gallbladder, unspecified; R93.89 Abnormal findings on diagnostic imaging of other specified body structures; Z90.410 Acquired total absence of pancreas
CPT/HCPCS: 76705

== ENCOUNTER 2025-07-14 14:49 | Oncology outpatient (recurring) (ONCR) | payer OTHER, SELFPAY ==
[2025-07-14 15:34] LABS: Hematocrit 44.1 % (37-53); Hemoglobin 14.50 g/dL (11.27-16.99); Mean Corpuscular HGB Conc 32.9 g/dL (30-55); Mean Corpuscular Hemoglobin 28.1 pg (27-33); Mean Corpuscular Volume 85.5 fl (82-101); Nucleated Red Blood Cells % 0 %; Platelet Count 335 10^3/cmm (157-399); Red Blood Count 5.16 10^6/uL (3.85-5.65); White Blood Count 16.85 10^3/uL (3.29-11.43)
[2025-07-14 15:51] LABS: Alanine Aminotransferase 68 U/L (0-41); Albumin Level 3.5 g/dL (3.5-5.2); Alkaline Phosphatase 587 U/L (40-130); Anion Gap 17.9 (5-19); Aspartate Amino Transferase 96 U/L (0-40); Blood Urea Nitrogen 13 mg/dL (8-23); Calcium 9.1 mg/dL (8.5-10.5); Carbon Dioxide 26 mmol/L (22-29); Chloride 96 mmol/L (98-107); Creatinine Clr Calc Pharmacy 92.2805; Globulin 4.4 g/dL (1.3-4.6); Glucose 111 mg/dL (65-115); Iron 53 ug/dL (59-158); Osmolality Calculated 283 mOsm/kg (285-295); Potassium 3.9 mmol/L (3.5-5.1); Sodium 136 mmol/L (136-145); Total Iron Binding Capacity 251 mcg/dl; Total Protein 7.9 g/dL (6.6-8.7); Unsaturated Iron Binding 198 ug/dL (112-347)
[2025-07-14 16:08] LABS: Ferritin 1912 ng/mL (30-400)
[2025-07-14 20:27] LABS: Tumor Marker Alpha Fetoprotein 1.8 ng/mL (0-8.3)
== END 2025-07-27 23:59 | disposition home or self-care (01) ==
PROVIDERS: Visit Provider Internal Medicine
DX: R16.0 Hepatomegaly, not elsewhere classified (principal)
CPT/HCPCS: 36415; 80053; 82105; 82728; 83540; 83550; 85025

== ENCOUNTER 2025-07-23 11:07 | Emergency (ER) | payer OTHER, SELFPAY ==
[2025-07-23] VITALS (12 sets, daily range): BP systolic 137–184; BP diastolic 89–131; PULSE 76–99; RESP 18; TEMP 36.6; O2SAT 91–98
--- NOTE | 2025-07-23 11:50 | W.ED.ABDPA2 ---
HPI - Abdominal Pain General: Chief Complaint: Abdominal Pain Stated Complaint: vomitting Time Seen by Provider: 07/23/25 11:49 History of Present Illness: 64-year-old man with a recently discovered mass in his liver who presents to the emergency room with nausea and vomiting for the last 5 days. He also reports severe abdominal pain. He appears quite jaundiced. His says that he has been jaundice but looking back recent labs showed a bilirubin of only 1.9. This mass was discovered on a CT for abdominal pain in the emergency room. He has followed up with oncology with a single visit and the plan at that point was to follow-up with him again after he got a biopsy. However the patient and his do not seem to have any idea when or where the biopsy is going to be. No known fevers. No altered mental status. Related Data Previous Rx's ?Medication ?Instructions ?Recorded tamsulosin 0.4 mg capsule 0.4 mg PO DAILY #30 caps 10/09/24 oxycodone 5 mg tablet 5 mg PO Q6H PRN pain 30 days #100 07/14/25 tabs ondansetron 4 mg disintegrating 4 mg PO Q6H PRN nausea and 07/20/25 tablet vomiting #120 tabs Allergies Allergy/AdvReac Type Severity Reaction Status Date / Time No Known Allergies Allergy Verified 07/14/25 14:52 Review of Systems Narrative: Constitutional symptoms: Negative except as documented in HPI. Skin symptoms: Negative except as documented in HPI. Eye symptoms: Negative except as documented in HPI. ENMT symptoms: Negative except as documented in HPI. Respiratory symptoms: Negative except as documented in HPI. Cardiovascular symptoms: Negative except as documented in HPI. Gastrointestinal symptoms: Negative except as documented in HPI. Genitourinary symptoms: Negative except as documented in HPI. Musculoskeletal symptoms: Negative except as documented in HPI. Neurologic symptoms: Negative except as documented in HPI. Psychiatric symptoms: Negative except as documented in HPI. Endocrine symptoms: Negative except as documented in HPI. COUNT INCLUDES THE [facility] ED PFSH: Medical History (Updated 07/23/25 @ 16:58 by Marely Garcia MD) Hyperlipidemia ascvd risk calculator X 10 year risk 41.6%-- 2023 Chronic kidney disease, stage 3a Noncompliance with medications BPH (benign prostatic hyperplasia) Tobacco dependence due to cigarettes Incomplete bladder emptying Ankle fracture, left Surgical History Hx of elbow surgery right Bladder calculi hx of cystolitholapaxy in 2020 History of hernia surgery inguinal X2 Family History Other Hypertension Denies family history of Clotting disorder Anesthesia complication Bleeding disorder Cancer Social History Smoking and tobacco/nicotine status: current every day tobacco/nicotine user cigarettes Packs smoked per day: 1 Years cigarettes smoked: 43 Alcohol intake: current Alcohol intake frequency: holidays/special occasions only Substance/Drug Use: current Substance/Drug use frequency: daily Physical Exam Narrative: EXAM NARRATIVE: General: Alert, no acute distress. Skin: Warm, dry. Jaundice Head: Normocephalic, atraumatic. Neck: Supple, trachea midline. Eye: Extraocular movements are intact. Ears, nose, mouth and throat: Dry oral mucosa Cardiovascular: Regular, Normal peripheral perfusion. Respiratory: Lungs are clear to auscultation, respirations are non-labored, breath sounds are equal, Symmetrical chest wall expansion. Gastrointestinal: Soft, massively enlarged liver with palpable liver margin. He is also quite tender Musculoskeletal: Normal ROM, no deformity. Neurological: Alert and oriented, No focal neurological deficit observed. Psychiatric: Cooperative, appropriate mood & affect. Course Vital Signs: Vital signs: Vital Signs Temperature 97.9 F 07/23/25 11:08 Pulse Rate 80 07/23/25 16:00 Respiratory Rate 18 07/23/25 11:08 Blood Pressure 157/89 07/23/25 16:00 Pulse Oximetry 91 07/23/25 16:00 Oxygen Delivery Me thod Room Air 07/23/25 16:00 MDM - Abdominal Pain Medical Decision Making Medical decision making: Differential diagnosis including but not limited to and based on the above HPI, review of systems and physical exam: In this patient with known liver mass and new jaundice and abdominal pain would have concern for biliary obstruction, worsening disease, ascites, hepatic encephalopathy, other infections. Orders placed to evaluate differential diagnosis based on the above differential, HPI and physical exam Lab Review: Laboratory results were reviewed and interpreted by myself the emergency room physician. Significant leukocytosis with a white count of 23,000. No anemia. BUN is elevated at 27. Platelets are normal. Coags are normal as well. Ammonia is normal. LFTs are more elevated than previous at 108 and 215. Bilirubin is much higher at 10.8. CT of the abdomen pelvis with contrast: Significant progression in the last 20 days. Lesion is now 15 x 13 cm. New and progressed smaller satellite nodules throughout both hepatic lobes and hepatomegaly and innumerable lesions. Compression and narrowing of the portal veins with effacement of the portal confluence and SMV at the vickey hepatis. Suspected tumor thrombus in the splenic vein. Progressive masslike necrotic lymphadenopathy. Compression of the IVC. Tumor invasion of the gallbladder fossa. Dilated common bile duct but the rest of the biliary system is unable to be visualized because of all of the tumor. See radiology report for full report. This was reviewed and interpreted by myself the emergency room physician. I also reviewed the radiology report. I reviewed the patient's medical record. Reviewed previous ER note and his oncology visit. Plan was to have biopsy follow-up again in oncology clinic. Transfer: I spoke with Dr. Aldridge at [facility] who has accepted the patient in transfer. They will call back when have a bed. Patient requires transfer secondary to need gastroenterology and a biliary team for possible biliary stenting. Reexamination: Pain medicine has helped bring blood pressure down. He is had no altered mental status while he is been here. No oxygen requirements. No increased work of breathing. He has been ambulatory in his room. He has had multiple questions for attempted to answer. Assessment and plan: Leukocytosis Liver masses Ascending colon gyrus possible Biliary obstruction Hyperbilirubinemia Severe abdominal pain Dehydration ?N.p.o. after midnight. I will let him drink now he is very insistent ?1 L normal saline bolus. ?IV Dilaudid and Zofran ?IV cefepime and Flagyl. -I discussed the patient with the accepting physician on-call. - Discussed findings and plan with patient. Answered any questions. - All laboratory values were reviewed and interpreted personally by myself, the ER physician - All imaging was reviewed and interpreted personally by myself, the ER physician. - Evaluation and treatment of this problem were appropriate in the emergency setting Lab Data 07/23/25 12:11 07/23/25 13:02 Labs/Radiology: Radiology Impressions Abdomen/Pelvis CT 07/23/25 13:47 IMPRESSION: 1. Significant marked progression of the hepatic neoplasm since 06/28/2025. Index lesion now measures 15.0 x 13.2 cm. 2. Numerous new and progressed smaller satellite nodules throughout both hepatic lobes with hepatomegaly and innumerable lesions. 3. New significant compression and narrowing of the portal veins with effacement of the portal confluence and SMV at the vickey hepatis. Suspected tumor thrombus in the splenic vein with partial thrombosis today 4. Progressed masslike necrotic lymphadenopathy in the vickey hepatis. 5. Significant compression of the IVC although the hepatic vein confluence appears patent with significant narrowing of the hepatic veins. 6. Tumor invasion into the gallbladder fossa today is new since previous with tethering of the gallbladder and loss of the normal contour. 7. Dilated common bile duct is visualized at the pancreatic head measuring 12 mm. 8. Suspected early peritoneal carcinomatosis with induration in the ventral mesentery in a subhepatic location. 9. Progressed periaortic lymphadenopathy. 10. Large dystrophic bladder calculi similar to previous with chronic bladder wall thickening. Notified Marely Garcia MD at 07/23/2025 3:02 PM. Laboratory Results WBC 23.04 10^3/uL (3.29-11.43) H 07/23/25 12:11 RBC 5.34 10^6/uL (3.85-5.65) 07/23/25 12:11 Hgb 15.10 g/dL (11.27-16.99) 07/23/25 12:11 Hct 45.6 % (37-53) 07/23/25 12:11 MCV 85.4 fl (82-101) 07/23/25 12:11 MCH 28.3 pg (27-33) 07/23/25 12:11 MCHC 33.1 g/dL (30-55) 07/23/25 12:11 RDW 18.2 % (12.1-15.1) H 07/23/25 12:11 Plt Count 330 10^3/cmm (157-399) 07/23/25 12:11 MPV 11.1 fL (7.4-10.4) H 07/23/25 12:11 Neut % (Auto) 87.8 % 07/23/25 12:11 Lymph % (Auto) 4.9 % 07/23/25 12:11 [place] % (Auto) 6.1 % 07/23/25 12:11 Eos % (Auto) 0.0 % 07/23/25 12:11 Baso % (Auto) 0.3 % 07/23/25 12:11 Neut # (Auto) 20.21 10^3/uL (1.8-7.7) H 07/23/25 12:11 Lymph # (Auto) 1.1 10^3/uL (0.8-4.8) 07/23/25 12:11 Hopkins # (Auto) 1.4 10^3/uL (0.2-0.9) H 07/23/25 12:11 Eos # (Auto) 0.0 10^3/uL (0.0-0.8) 07/23/25 12:11 Baso # (Auto) 0.1 10^3/uL (0.0-0.1) 07/23/25 12:11 Nucleated RBC % (auto) 0 % 07/23/25 12:11 Nucleated RBCs # 0.0 /100WBC 07/23/25 12:11 PT 13.80 SECONDS (12.1-14.9) 07/23/25 12:11 INR 0.99 (0.8-1.2) 07/23/25 12:11 APTT 25.3 SECONDS (23.9-36.7) 07/23/25 12:11 Sodium 134 mmol/L (136-145) L 07/23/25 13:02 Potassium 3.3 mmol/L (3.5-5.1) L 07/23/25 13:02 Chloride 90 mmol/L (98-107) L 07/23/25 13:02 Carbon Dioxide 29 mmol/L (22-29) 07/23/25 13:02 Anion Gap 18.3 (5-19) 07/23/25 13:02 BUN 27 mg/dL (8-23) H 07/23/25 13:02 Creatinine 1.0 mg/dL (0.7-1.2) 07/23/25 13:02 GFR Calculation 75.7 mL/min (90-130) L 07/23/25 13:02 Glucose 133 mg/dL (65-115) H 07/23/25 13:02 Calculated Osmolality 285 mOsm/kg (285-295) 07/23/25 13:02 Lactic Acid 4.0 mmol/L (0.5-2.2) H 07/23/25 12:11 Lactic Acid (Sepsis) 3.4 mmol/L (0.5-2.2) H 07/23/25 14:52 Calcium 8.1 mg/dL (8.5-10.5) L 07/23/25 13:02 Total Bilirubin 10.8 mg/dL (0.15-1.2) H* 07/23/25 13:02 AST 215 U/L (0-40) H 07/23/25 13:02 ALT 108 U/L (0-41) H 07/23/25 13:02 Alkaline Phosphatase 672 U/L (40-130) H 07/23/25 13:02 Ammonia 35 umol/L (16-60) 07/23/25 13:02 Total Protein 6.6 g/dL (6.6-8.7) 07/23/25 13:02 Albumin 2.6 g/dL (3.5-5.2) L 07/23/25 13:02 Globulin 4.0 g/dL (1.3-4.6) 07/23/25 13:02 Lipase 13 U/L (13-60) 07/23/25 13:02 Urine Color Dark yellow (Yellow) A 07/23/25 14:10 Urine Appearance Cloudy (CLEAR) A 07/23/25 14:10 Urine pH 5.5 (5-7) 07/23/25 14:10 Ur Specific [place] 1.019 (1.005-1.030) 07/23/25 14:10 Urine Protein 2+ (Negative) A 07/23/25 14:10 Urine Glucose (UA) Negative (Normal) 07/23/25 14:10 Urine Ketones Negative (Negative) 07/23/25 14:10 Urine Blood Trace (Negative) A 07/23/25 14:10 Urine Nitrate Positive (Negative) A 07/23/25 14:10 Urine Bilirubin 3+ (Negative) H 07/23/25 14:10 Urine Urobilinogen 2.0 mg/dL (Negative) H 07/23/25 14:10 Ur Leukocyte Esterase 2+ (Negative) A 07/23/25 14:10 Urine RBC 11-20 /hpf (0-2) H 07/23/25 14:10 Urine WBC 21-50 /hpf (0-5) H 07/23/25 14:10 Ur Squamous Epith Cells 11-20 /hpf (0-5) H 07/23/25 14:10 Amorphous Sediment Not Reportable 07/23/25 14:10 Urine Bacteria 3+ /hpf (NONE) H 07/23/25 14:10 Hyaline Casts 17.77 /lpf 07/23/25 14:10 Fine Granular Casts 0-4 /lpf H 07/23/25 14:10 All radiology interpretation(s) finalized by discharge Discharge Plan Discharge Patient Disposition: Xfer Short-Term Hosp Clinical Impression: Liver mass, Hyperbilirubinemia, Abdominal pain, Leukocytosis, Urinary tract infection, Biliary obstruction, Ascending cholangitis Condition: Stable Patient Instructions: Abdominal Pain (ED) Print Language: Guamanian Coding Level of Care Code ED Community Associate for Prachi Martinez
--- NOTE | 2025-07-23 12:08 | PC.NURSE ---
Addendum entered by Unique Lees LPN 07/23/25 12:09: Charge nurse notified and attempting an IV. Original Note: [employer] BROKER attempted IV to right AC, unsuccessful, upon leaving room pt's visitor female with blonde hair states Can't stand that fucking shit digging. think they would have nurses here that know what they're doing.
[2025-07-23] MEDS: ondansetron 2 mg/ML SDV 2 mL 8 MG IVP (12:15)
[2025-07-23 12:19] LABS: Hematocrit 45.6 % (37-53); Hemoglobin 15.10 g/dL (11.27-16.99); Mean Corpuscular HGB Conc 33.1 g/dL (30-55); Mean Corpuscular Hemoglobin 28.3 pg (27-33); Mean Corpuscular Volume 85.4 fl (82-101); Nucleated Red Blood Cells % 0 %; Platelet Count 330 10^3/cmm (157-399); Red Blood Count 5.34 10^6/uL (3.85-5.65); White Blood Count 23.04 10^3/uL (3.29-11.43)
[2025-07-23 12:30] LABS: INR 0.99 (0.8-1.2); Prothrombin Time 13.80 SECONDS (12.1-14.9)
[2025-07-23 12:31] LABS: Partial Thromboplastin Time 25.3 SECONDS (23.9-36.7)
[2025-07-23] MEDS: HYDROmorphone 0.5 MG/0.5 ML INJ 1 MG IVP ×2 (12:37→15:40)
[2025-07-23 12:42] LABS: Lactic Sepsis W/Reflex 4.0 mmol/L (0.5-2.2)
[2025-07-23 12:51] LABS: Reflex Lactate Order REFLEX LACTIC ORDERD
--- NOTE | 2025-07-23 13:26 | PC.NURSE ---
Pt given urinal and nurse asked pt for a urine sample.
[2025-07-23 13:38] LABS: Ammonia 35 umol/L (16-60)
[2025-07-23 13:39] LABS: Alanine Aminotransferase 108 U/L (0-41); Albumin Level 2.6 g/dL (3.5-5.2); Alkaline Phosphatase 672 U/L (40-130); Anion Gap 18.3 (5-19); Aspartate Amino Transferase 215 U/L (0-40); Blood Urea Nitrogen 27 mg/dL (8-23); Calcium 8.1 mg/dL (8.5-10.5); Carbon Dioxide 29 mmol/L (22-29); Chloride 90 mmol/L (98-107); Globulin 4.0 g/dL (1.3-4.6); Glucose 133 mg/dL (65-115); Lipase 13 U/L (13-60); Osmolality Calculated 285 mOsm/kg (285-295); Potassium 3.3 mmol/L (3.5-5.1); Sodium 134 mmol/L (136-145); Total Protein 6.6 g/dL (6.6-8.7)
--- NOTE | 2025-07-23 13:47 | CT_ITS ---
WS: [id number] CT ABDOMEN PELVIS TECHNIQUE: Contrast-enhanced CT of the abdomen and pelvis with coronal and sagittal reformatted images. CLINICAL INFORMATION: worsening abd pain and bili. COMPARISON: CT 06/28/2025 DLP: 508.[address] scans at [facility] use at least one of these dose optimization techniques: automated exposure control; mA and/or kV adjustment per patient size (includes targeted exams where dose is matched to clinical indication); or iterative reconstruction. FINDINGS: Again seen is the large heterogeneous infiltrative hepatic neoplasm involving both the RIGHT and LEFT hepatic lobes with multiple satellite nodules. Hepatomegaly. Disease in the liver appears significantly progressed since 06/28/2025 with numerous new and larger lesions throughout both hepatic lobes. The primary index lesion today measures approximately 13.2 x 15.1 cm. Mass effect on the portal veins and hepatic veins has increased with associated narrowing. Severe compression of the portal confluence. New suspected tumor thrombus partially occludes the splenic vein. Masslike lymphadenopathy in the vickey hepatis with effacement of the SMV. Progressed necrotic lymphadenopathy in the vickey hepatis and upper abdomen along the mesenteric axis. Tumor thrombus in the splenic vein new from previous. Signifi cant compression of the IVC which appears patent. Hepatic confluence appears patent. Progressed tumor invasion into the gallbladder fossa with involvement of the gallbladder and gallbladder wall. Suggestion of early subhepatic peritoneal metastasis with some induration in the ventral mesentery. Progressed aortocaval lymphadenopathy. Small esophageal hiatal hernia. Lung bases are well aerated. Adrenal glands are normal. No hydronephrosis. Bilateral renal cysts. Normal caliber abdominal aorta. Artery calcification. Large dystrophic bladder calculi similar to previous. Chronic diffuse bladder wall thickening. Sigmoid diverticulosis. No evidence of acute diverticulitis. Fat-containing umbilical hernia. Bilateral pars defects L5-S1 with grade 1 anterolisthesis. Hepatic flexure transverse colon closely abuts the enlarged RIGHT hepatic lobe with some wall thickening and enhancement likely reactive. Tortuous appendix extends cephalad about the RIGHT hepatic lobe. A few enhancing small bowel loops also about the hepatic flexure in this area. Patient at risk for bowel obstruction in this area due to adhesions and tethering CT/CT abdomen pelvis w con* [id number] IMPRESSION: 1. Significant marked progression of the hepatic neoplasm since 06/28/2025. Inde x lesion now measures 15.0 x 13.2 cm. 2. Numerous new and progressed smaller satellite nodules throughout both hepat ic lobes with hepatomegaly and innumerable lesions. 3. New significant compression and narrowing of the portal veins with effaceme nt of the portal confluence and SMV at the vickey hepatis. Suspected tumor throm bus in the splenic vein with partial thrombosis today 4. Progressed masslike necrotic lymphadenopathy in the vickey hepatis. 5. Significant compression of the IVC although the hepatic vein confluence joni ears patent with significant narrowing of the hepatic veins. 6. Tumor invasion into the gallbladder fossa today is new since previous with tethering of the gallbladder and loss of the normal contour. 7. Dilated common bile duct is visualized at the pancreatic head measuring 12 mm. 8. Suspected early peritoneal carcinomatosis with induration in the ventral me sentery in a subhepatic location. 9. Progressed periaortic lymphadenopathy. 10. Large dystrophic bladder calculi similar to previous with chronic bladder wall thickening. Notified Marely Garcia MD at 07/23/2025 3:02 PM.
[2025-07-23] MEDS: cefepime 2,000 mg SDV 2000 MG IVP (13:54)
[2025-07-23] MEDS: linezolid premix 600 MG/300 ML PREMIX 300 MG IV (13:54)
[2025-07-23] MEDS: iohexol 350 mg/mL 500 mL Btl (per mL) IV (14:19)
[2025-07-23 14:42] LABS: Glucose Urine UA Negative (Normal); Nitrate Urine Positive (Negative); Specific Gravity, Urine 1.019 (1.005-1.030)
[2025-07-23 14:58] LABS: UA Slide Review UA Slide Review Perf
[2025-07-23 15:16] LABS: Lactic Acid level (Lactate) 3.4 mmol/L (0.5-2.2)
--- NOTE | 2025-07-23 15:37 | PC.NURSE ---
Pt BP at 1530 to 154/121. Dr. Garcia notified at 1535. Per Dr. Garcia IVP x1 of Hydromorphone 1mg now.
--- NOTE | 2025-07-23 16:53 | PC.NURSE ---
Pt has removed all VS equipment off at this time.
[2025-07-23] MEDS: metroNIDAZOLE IV 500 MG/100 ML PREMIX 100 MG IV (17:48)
--- NOTE | 2025-07-23 18:24 | PC.NURSE ---
@0968 this nurse updated nurse with transfer team at [facility] in [facility]
[2025-07-23] MEDS: lidocaine 2% viscous 15 ML, aluminum-mag hydrox-simethicon 30 ML, sucralfate oral liq 1 GM PO (21:55)
--- NOTE | 2025-07-23 22:33 | PC.NURSE ---
Called [facility] at 2225, nurse is to callback for report. PT accepted bed number 2561-A. report number to call [phone].
--- NOTE | 2025-07-23 22:48 | PC.NURSE ---
report called to Samir ZAMBRANO at [phone].
--- NOTE | 2025-07-23 23:19 | PC.NURSE ---
[facility] All questions and concerns addressed at time of report.
== END 2025-07-23 23:32 | disposition short-term general hospital (02) ==
PROVIDERS: Emergency Provider Emergency Medicine
DX: R16.0 Hepatomegaly, not elsewhere classified (principal); E80.6 Other disorders of bilirubin metabolism; R10.9 Unspecified abdominal pain; D72.829 Elevated white blood cell count, unspecified; N39.0 Urinary tract infection, site not specified; K83.1 Obstruction of bile duct; K83.09 Other cholangitis; F17.210 Nicotine dependence, cigarettes, uncomplicated; E78.5 Hyperlipidemia, unspecified; N18.31 Chronic kidney disease, stage 3a
CPT/HCPCS: 36415; 74177; 80053; 81001; 82140; 83605; 83690; 85025; 85610; 85730; 87040; 87086; 96365; 96366; 96367; 96375; 96376; 99285; J0692; J1171; J2020; J2405; J3490; J7030; J9999

== ENCOUNTER 2025-08-10 08:50 | Emergency (ER) | payer OTHER, SELFPAY ==
[2025-08-10 09:02] VITALS: BP 0/0; PULSE 0; O2SAT 0
--- NOTE | 2025-08-10 09:04 | W.ED.GENADLT ---
HPI - General Adult General: Chief complaint: Cardiac Arrest/CPR Stated complaint: Fall Source: EMS Mode of arrival: EMS Limitations: altered mental status History of Present Illness: 64-year-old male has history of a liver mass or chronic kidney disease. Patient brought in by EMS he was found on the floor generalized weakness when he arrived he was altered and immediately vomited a large amount of bloody emesis and went pulseless right when he arrived. Per EMS he was initially hypertensive and quite altered but became very bradycardic and hypotensive just before arrival here Related Data Previous Rx's ?Medication ?Instructions ?Recorded tamsulosin 0.4 mg capsule 0.4 mg PO DAILY #30 caps 10/09/24 oxycodone 5 mg tablet 5 mg PO Q6H PRN pain 30 days #100 07/14/25 tabs ondansetron 4 mg disintegrating 4 mg PO Q6H PRN nausea and 07/20/25 tablet vomiting #120 tabs Allergies Allergy/AdvReac Type Severity Reaction Status Date / Time No Known Allergies Allergy Verified 07/14/25 14:52 Review of Systems General: Reports: ROS unobtainable due to mental status PFS ED PFSH: Medical History (Updated 08/10/25 @ 09:06 by Sameera Medina MD) Hyperlipidemia ascvd risk calculator X 10 year risk 41.6%-- 2023 Chronic kidney disease, stage 3a Noncompliance with medications BPH (benign prostatic hyperplasia) Tobacco dependence due to cigarettes Incomplete bladder emptying Ankle fracture, left Surgical History Hx of elbow surgery right Bladder calculi hx of cystolitholapaxy in 2020 History of hernia surgery inguinal X2 Family History Other Hypertension Denies family history of Clotting disorder Anesthesia complication Bleeding disorder Cancer Social History Smoking and tobacco/nicotine status: current every day tobacco/nicotine user cigarettes Packs smoked per day: 1 Years cigarettes smoked: 43 Alcohol intake: current Alcohol intake frequency: holidays/special occasions only Substance/Drug Use: current Substance/Drug use frequency: daily Physical Exam Const: COMMON NORMALS: negative for patient oriented x3 HENMT: COMMON NORMALS: normocephalic and atraumatic HEAD & SCALP: normocephalic and atraumatic Eye: OTHER: scleral icterus Chest: COMMONS NORMALS: normal inspection of the chest Resp: OTHER: agnonal resp Cardio: OTHER: no pulse GI: OTHER: Abdomen is extremely distended Extremity: COMMON NORMALS: normal to inspection Neuro: COMMON NORMALS: negative for patient oriented x3 Psych: COMMON NORMALS: negative for mental status grossly normal Skin: NARRATIVE SKIN EXAM: Extremely jaundiced Procedures Intubation Time out performed: No sedative: none Laryngoscope: Luis Fernando ET Tube Size: 8 ET Tube Uncuffed: No Tube Secured Depth (cm): 25 Tube Secured Location: lips Tube Placement Confirmation: visualized tube passing through cords, equal breath sounds bilaterally, no breath sounds over epigastrium and confirmation by capnometry Patient Tolerated Procedure: well Intubation Complications: none MDM - General Adult Medical Decision Making Patient presented here after being found altered when he arrived he immediately started vomiting large amounts of hematemesis and immediately had agonal respirations and lost pulses. We did place an IO I did intubate patient had multiple rounds of compressions along with epinephrine. We never had any retained of circulation rhythm was PEA time of was called at 902. I did speak to family after as well and updated them. Medical Records I reviewed the patient's medical records. No radiology studies performed this visit Discharge Plan Discharge Patient Disposition: Clinical Impression: Cardiac arrest Coding Level of Care Code ED Tax Assistant for Prachi Martinez
--- NOTE | 2025-08-10 09:26 | PC.NURSE ---
Code blue; 0854 CPR 0856 Pulse Check/PEA/CPR. 0857 bilateral IO's placed to legs 0858 Pulse Check/PEA 0858 EPI IVP 0900 Pulse check/PEA/CPR 0901 Epi IVP 0902 Pulse Check/PEA [address] Medina MTS called by HS. Pt not a candidate. Ref #[id number] Dwight morris notified of TOD by ER staff. Released by [employer] Sales Representative.
--- NOTE | 2025-08-10 09:33 | PC.NURSE ---
upon arrival pts skin was yellow and pt was staring off. pt was altered upon arrival with no verbal responses, upon moving pt to our bed, pt became pulseless and had no respirations. compressions were initiated, Dr. Medina at bedside. several rounds of compressions were done and epi was given. Dr. Medina checked for cardiac activity- none present. TOD called by Dr. Medina @ [phone].
--- NOTE | 2025-08-10 09:51 | PC.NURSE ---
pt released by [employer]. not a candidate.
== END 2025-08-10 09:02 | disposition expired ==
PROVIDERS: Emergency Provider Emergency Medicine
DX: I46.9 Cardiac arrest, cause unspecified (principal); F17.210 Nicotine dependence, cigarettes, uncomplicated; N18.31 Chronic kidney disease, stage 3a; E78.5 Hyperlipidemia, unspecified
CPT/HCPCS: 94799; 99285; 99291